=== PATIENT | female | born 1990 | race Caucasian/White ===

== ENCOUNTER → 2024-01-16 10:01 | Outpatient (REF) | payer OTHER, SELFPAY | LOC: PNTC 10:01 | PROVIDERS: ATTENDING PHYSICIAN Obstetrics & Gynecology | DX: O43.212 Placenta accreta, second trimester (principal) | CPT/HCPCS: 76816; 93976 ==

== ENCOUNTER 2024-04-10 03:24 | Inpatient (IN) | payer OTHER, SELFPAY ==
[2024-04-10 03:31] VITALS: BMI 28.3
[2024-04-10] MEDS: LR 1000 IV ×2 (04:10→06:39)
[2024-04-10 04:31] LABS: % Basophils 0.2 % (0-2); % Eosinophils 0.2 % (0-6); % Immature Granulocytes 0.6 % (0-0.5); % Lymphocytes 12.9 % (20.5-51.1); % Monocytes 5.6 % (1.7-9.3); % Neutrophils 80.5 % (42.2-75.2); Absolute Immature Granulocytes 0.1 10^3/uL (0-0.05); Absolute Lymphocytes 1.6 10^3/uL (1.2-3.4); Absolute Monocytes 0.7 10^3/uL (0.1-0.6); Absolute Neutrophils 10.1 10^3/uL (1.4-6.5); Hematocrit 35.5 % (37.0-47.0); Mean Corp Hgb Conc. 33.8 g/dL (33.0-37.0); Mean Corpuscular Hgb 28.4 pg (27.0-31.0); Mean Corpuscular Volume 84.1 fL (81.0-99.0); Mean Platelet Volume 12.3 fL (7.4-10.4); Nucleated Red Blood Cells % 0 %; Platelet Count 176 10^3/uL (130-400); Red Blood Cell Count 4.22 10^6/uL (4.20-5.40); Red Cell Dist. Width 13.6 % (11.5-14.5); White Blood Cell Count 12.6 10^3/uL (4.8-10.8)
[2024-04-10 05:32] VITALS: BP 130/85
[2024-04-10] MEDS: SUBLIMAZE 100 MCG EPIDURAL (06:26)
[2024-04-10] MEDS: FENTANYL/BUPIVACAINE 100 EPIDURAL ×2 (06:26→13:41)
--- NOTE | 2024-04-10 13:05 | CON.CAR ---
Addendum entered and electronically signed by Boby Melton MD 04/10/24 13:36:
I saw and examined the patient.
The AIR TRAFFIC CONTROL OPERATOR's note was reviewed and I agree with the note.
Comment: 33-year-old female who is here in labor, with intermittent bradycardia on pulse ox measurement.
- telemetry for 24 hrs
Original Note:
Consultation
Consultation Request
Date/Time Consultation Requested: 04/10/2024 12:44
Date/Time Consultation Performed: 04/10/2024 12:50
Requesting Provider: Dr. Valenzuela
Performing Provider: JOHN PAUL Morales for Dr. Melton
Reason for Consultation: Bradycardia, PACs
Medical History
-
Chief Complaint: Labor
History of Present Illness:
Patient is a 33-year-old female who is here in labor. Cardiology was consulted for intermittent pulse ox reading showing bradycardia. EKG with PACs. She is having intermittent bouts of dizziness, however she is 9 cm dilated and in active labor.
Cardiology was asked for consultation. She has an epidural and is currently pain-free. She did not have any symptoms of dizziness or palpitations during the consultation.
Past Medical History
Past Medical History: None
Social History
Tobacco: Non-Smoker
Alcohol: None
Drug: None
Personal:
Living: With Family
Family History
Family History: Other (CAD in 50s and grandfather.)
Allergies / Home Medications
Allergy/AdvReac Type Severity Reaction Status Date / Time
amoxicillin AdvReac Mild yeast Verified 04/10/24 03:48
infection
�Medication �Instructions �Recorded �Confirmed �Type
Multivitamin Tablet 1 tab PO DAILY 09/10/21 04/10/24 History
Review of Systems
-
History Source: Patient
All other systems: Negative unless noted
EENT: No Symptoms
Respiratory: No Symptoms
Cardiac: No Symptoms
Physical Exam
Vital Signs
Temp Pulse Resp BP
97.7 F 88 18 130/85
04/10/24 05:32 04/10/24 05:32 04/10/24 05:32 04/10/24 05:32
Lab Results
04/10/24 04:23
Physical Exam
General: Well Developed, Well Nourished, No Apparent Distress and Comfortable
HEENT: Normocephalic and Moist Mucous Membranes
Respiratory: Non Labored Respirations
Cardiac: S1/S2 and Irregular Rhythm
Breast: Deferred by me
GI: Non Tender and Other (Gravid)
Rectal: Deferred by Provider
Genito-urinary: No Costovertebral Tender
Musculoskeletal: No Clubbing, No Cyanosis and Edema (Trace ankle edema)
Skin: Warm and Dry
Neuro: AO x 3
Hematologic/Lymphatic: No Lymphadenopathy
Psych: Calm
Impression / Plan
-
Bradycardia on monitoring
PACs
-Placed on telemetry and follow
-EKG per my review with sinus tachycardia (rate 101) with PACs.
-CBC this morning stable
, at 40 weeks gestation, in labor, anticipate delivery in the next two hours
[2024-04-10 14:46] LABS: Cord ABG Comment CORD BLOOD
[2024-04-10 14:48] LABS: B.E. Cord ABG -6.8 mMOL/L; HCO3 Cord ABG 23.7 mmol/L; O2 Saturation % Cord ABG 18.1 %; PCO2 Cord ABG 68 mmHg; PO2 Cord ABG 13 mmHg; pH Cord ABG 7.15
[2024-04-10 14:50] LABS: B.E. Cord ABG -6.6 mMOL/L; HCO3 Cord ABG 20.6 mmol/L; PCO2 Cord ABG 46 mmHg; PO2 Cord ABG 24 mmHg; pH Cord ABG 7.26
[2024-04-10] MEDS: TYLENOL 650 MG PO (15:41)
[2024-04-10] MEDS: MOTRIN 600 MG PO ×2 (15:41→22:30)
[2024-04-10] MEDS: ROXICODONE 5 MG PO (22:30)
--- NOTE | 2024-04-11 03:21 | DOWNTIME ---
There was a [employer] Client Tool Dispatcher Downtime on 04/10/2024 from 0100 to 04/11/2024 at 0300. Downtime documentation of patient's care, including medication administrations, has been reconciled in the electronic record per guidelines. Refer to the
patient's paper chart under the miscellaneous tab to see printed paper medication records and downtime forms.
[2024-04-11 03:56] LABS: Hematocrit 35.2 % (37.0-47.0); Hemoglobin 11.9 g/dL (12.0-16.0)
[2024-04-11] MEDS: MOTRIN 600 MG PO ×2 (04:45→15:55)
[2024-04-11] MEDS: TYLENOL 650 MG PO ×3 (04:45→21:55)
--- NOTE | 2024-04-11 07:24 | PTCARENOTE ---
Assessed patient this morning. Patient heart and lung sounds within normal limits. Patient is in a simus rhythm in 80s. Denies shortness of breath or dizziness. Will continue monitoring telemetry.
--- NOTE | 2024-04-11 11:43 | W.PN.CD ---
Addendum entered and electronically signed by Boby Melton MD 04/11/24 12:03:
I saw and examined the patient.
The PHYSICIST [employer]'s note was reviewed and I agree with the note.
Comment: 3-year-old female who was seen while in active labor yesterday after pulse ox showed bradycardia. EKG showed SR/ST PAC's.
Telemetry was not concerning.
- OK to dc telemetry
We will signoff please call with questions/concerns.
Original Note:
Today's Communication / Plan
-
Okay to d/c telemetry. No further cardiac work-up indicated at this time.
Impression / Plan
-
Assessment/plan: 33-year-old female who was seen while in active labor yesterday after pulse ox showed bradycardia. EKG showed SR/ST PAC's.
Bradycardia on pulse ox:
-on EKG and overnight telemetry no bradycardia is noted. She has PAC's and occasional PVC's. Pulse ox was likely erroneous due to benign ectopy. No concerning arrhythmias noted. Okay to d/c telemetry.
-feeling well without any cardiac symptoms
Physical Exam
Vital Signs/Labs
Vital Signs
Temp Pulse Resp BP
97.7 F 88 18 130/85
04/10/24 05:32 04/10/24 05:32 04/10/24 05:32 04/10/24 05:32
04/10/24 04/11/24 04/12/24
06:59 06:59 06:59
Actual Weight 72.575 kg
04/11/24 03:37
Physical Exam
Constitutional: No acute distress
EENT: Anicteric
Cardiovascular: Rhythm & rate is regular
Respiratory: Respiratory effort normal and Lungs clear to auscul.
Neuro/Psych: AO x 3
Data Reviewed
-
Date of Service: April 11, 2024
EKG: Other (SR with PAC's, occasional PVC's)
--- NOTE | 2024-04-11 11:58 | PTCARENOTE ---
telemetry has been discontinued
[2024-04-11] MEDS: PRENATAL PLUS 1 TABLET PO (15:55)
[2024-04-12] MEDS: TYLENOL 650 MG PO (07:07)
[2024-04-12] MEDS: PRENATAL PLUS 1 TABLET PO (07:07)
[2024-04-12] MEDS: MOTRIN 600 MG PO (07:07)
[2024-04-13 13:30] LABS: Syphilis/T. pallidum Ab Reflex Negative (Negative)
== END 2024-04-12 12:08 | disposition home or self-care (01) | DRG 807 ==
LOC: LDRP 03:24
PROVIDERS: Obstetrics & Gynecology; ADMITTING PHYSICIAN Obstetrics & Gynecology; CONSULT PHYSICIAN Internal Medicine Cardiovascular Disease
PROC: 10E0XZZ Delivery of Products of Conception, External Approach (ICD-10-PCS; 2024-04-10)
PROC: 6A550ZT Pheresis of Cord Blood Stem Cells, Single (ICD-10-PCS; 2024-04-10)
PROC: 10907ZC Drainage of Amniotic Fluid, Therapeutic from Products of Conception, Via Natural or Artificial Opening (ICD-10-PCS; 2024-04-10)
PROC: 0UQMXZZ Repair Vulva, External Approach (ICD-10-PCS; 2024-04-10)
PROC: 0HQ9XZZ Repair Perineum Skin, External Approach (ICD-10-PCS; 2024-04-10)
DX: O34.219 Maternal care for unspecified type scar from previous cesarean delivery (principal); Z37.0 Single live birth; Z3A.40 40 weeks gestation of pregnancy; O70.0 First degree perineal laceration during delivery; I25.10 Atherosclerotic heart disease of native coronary artery without angina pectoris; O69.81X0 Labor and delivery complicated by cord around neck, without compression, not applicable or unspecified; R00.1 Bradycardia, unspecified; O48.0 Post-term pregnancy; O76 Abnormality in fetal heart rate and rhythm complicating labor and delivery; O77.0 Labor and delivery complicated by meconium in amniotic fluid; O99.344 Other mental disorders complicating childbirth; F41.9 Anxiety disorder, unspecified; G43.909 Migraine, unspecified, not intractable, without status migrainosus; Z88.0 Allergy status to penicillin; Z86.16 Personal history of COVID-19; Z80.3 Family history of malignant neoplasm of breast
CPT/HCPCS: 82803; 85014; 85018; 85025; 86780; 86850; 86900; 86901; 93005; 93971